=== PATIENT | female | born 1985 | race African-American/Black ===

== ENCOUNTER 2024-04-18 08:01 | Outpatient (CLI) | payer OTHER, SELFPAY ==
[2024-04-18 18:44] LABS: Hematocrit 40.7 % (37.0-47.0); Hemoglobin 12.4 g/dL (12.0-15.0); Mean Corpuscular HGB Conc 30.5 g/dl (32-36); Mean Corpuscular Hemoglobin 23.8 pg (26-34); Platelet Count Result 364 k/mm3 (150-375); Red Blood Count 5.22 M/mm3 (4.2-5.4); Red Cell Distribution Width 16.2 % (11.5-14.5); White Blood Count 7.5 K/mm3 (4.5-10.0)
[2024-04-18 19:06] LABS: Alanine Aminotransferase 16 U/L (6-35); Albumin Level 3.9 g/dL (3.5-5.1); Alkaline Phosphatase 78 U/L (38-126); Anion Gap 5 mmol/L (4-12); Aspartate Amino Transferase 27 U/L (14-36); Bilirubin,Total 0.6 mg/dL (0.2-1.3); Blood Urea Nitrogen 8 mg/dL (7-17); Calcium 8.4 mg/dL (8.4-10.2); Carbon Dioxide 30 mmol/L (22-30); Chloride 103 mmol/L (98-107); Cholesterol 127 mg/dL (0-200); Estimated Glomerular Filt Rate > 60; Glucose 139 mg/dL (65-110); HDL Direct 34 mg/dL; Potassium 3.8 mmol/L (3.4-5.0); Sodium 138 mmol/L (137-145); Triglycerides 73 mg/dL (<150)
[2024-04-18 19:16] LABS: Iron 42 ug/dL (37-170)
[2024-04-18 19:21] LABS: LDL Cholesterol Direct 82 mg/dL
[2024-04-18 19:25] LABS: Percent Iron Saturation 12 % (20-50)
[2024-04-18 20:35] LABS: Hemoglobin A1C 5.5 % (<5.7)
== END 2024-04-18 08:02 | disposition home or self-care (01) ==
LOC: ANHGOSHLAB 08:03
PROVIDERS: PCP Family Medicine; Visit Provider Family Medicine
DX: D64.9 Anemia, unspecified (principal); I10 Essential (primary) hypertension; R73.03 Prediabetes; E66.9 Obesity, unspecified; E65 Localized adiposity
CPT/HCPCS: 36415; 80053; 80061; 82728; 83036; 83540; 83550; 84443; 85027